=== PATIENT | male | born 1985 | race Caucasian/White ===

== ENCOUNTER 2019-11-03 12:20 | Emergency (ER) | payer SELFPAY ==
[2019-11-03 12:21] VITALS: BP 110/71; PULSE 71; RESP 18; TEMP 37.4; O2SAT 99; BMI 28.0
--- NOTE | 2019-11-03 12:31 | ED.DCSUM_ITS ---
History of Present Illness Chief Complaint: Upper Extremity Injury Informant: Patient Onset: Today Current Severity: Moderate Maximum Severity: Moderate Narrative: Patient denies a past history, he was on a ladder about 5 feet inadvertently fell use his left arm brace his fall he has pain over the left mid humeral area, he denies hitting his head he has no head neck chest or abdominal pain he is able to move his left hand without difficulty, digits are all functional, he is right-handed Past Medical History - Allergies and Home Meds Allergies/Adverse Reactions: Allergies morphine Allergy (Verified 11/03/19 12:25) Hives Primary Care Physician: Care Physician,No Primary [Primary Care Provider] - Past Medical History: None Smoking Status: Never smoker Review of Systems General: Denies: Chills, Fever, Sweats Eyes: Denies: Visual changes - bilaterally, Diplopia ENT: Denies: Rhinorrhea, Sore throat Cardiovascular: Denies: Chest pain, Palpitations Respiratory: Denies: Dyspnea, Cough, Dyspnea on exertion Gastrointestinal: Denies: Abdominal pain, Nausea, Vomiting, Diarrhea, Melena, He matochezia Genitourinary: Denies: Dysuria, Hematuria, Frequency Musculoskeletal: Reports: Extremity Pain. Denies: Back pain Skin: Denies: Rash, Wounds Neurological: Denies: Headache, Weakness, Numbness Physical Exam Vital Signs/Narrative: Vital Signs Temp Pulse Resp BP Pulse Ox 11/03/19 12:21 99.3 F H 71 18 110/71 99 General: Well nourished, Well developed, No Acute Distress Head: Normocephalic, Atraumatic Eyes: Perrl, EOMI ENT: Moist mucous membranes, No rhinorrhea Neck: Supple, Nontender Cardiovascular: Regular rate, Regular rhythm, No murmurs Respiratory: No distress, CTA bilaterally, Chest nontender Abdomen: Soft, Nontender, Nondistended, Normal bowel sounds Back: Nontender, Normal Inspection Extremities: No edema, - - He has some pain and discomfort some swelling over the left mid humeral area, he has some very mild pain over the more proximal humerus and shoulder but no deformity, he has no specific pain over the elbow forearm wrist hand suggesting the pain radiates from the mid humerus down his hand function thumb function normal pulses are symmetric cap refill normal, the other extremities are all unremarkable he is awake alert he has no head neck chest or abdominal pain no back pain Skin: Normal color, No rash Neurological: Alert, Oriented x3, Cranial nerves II-XII grossly intact, Normal Strength, Normal Sensation Psychological: Normal affect, Normal Mood Diagnostic/Tx/Re-eval - Medical Decision Making Even all of the above x-rays pain management Patient's x-ray left humerus shows midshaft fracture with some angulation, forearm x-ray per radiology also negative for all, discussed the case with Dr. Ko on-call for orthopedics reviewed the films the patient will be placed in a long posterior arm splint elbow in position of function Dr. Ko asked that the sling part of that be attached to the wrist, the patient was medicated once he had good pain relief we applied the long splint as above without difficulty, I watched him for additional hour he indicated the splint felt very good it was snug it was not tight he had no numbness weakness paresthesias to his hand neurovascular function intact he wanted to be discharged home, he will follow-up with the orthopedic office tomorrow or the next day Percocet for pain he will wear the sling will be off work and return for change in symptoms Home stable Final impression midshaft left humerus fracture after fall, long fabricated splint placed by ED physician ED Disposition - Plan for ED Patient: Diagnosis: Left humeral fracture Instructions: ED Fracture Upper Extremity Prescriptions: Hydrocodone/Acetaminophen [[place] 5-325 Tablet] 1 ea PO 4X/DAY PRN #[id number] tab PRN Reason: Pain Or Fever Prescription Printed Referrals: Care Physician,No Primary [Primary Care Provider] - Srini Ko MD [STAFF PHYSICIAN] -
--- NOTE | 2019-11-03 12:50 | RAD_ITS ---
STUDY: X-RAY - LEFT HUMERUS REASON FOR EXAM: Male, 33 years old. FALL OFF LADDER, APPROXIMATELY 5 FT. OBVIOUS DEFORMITY TO LEFT UPPER ARM TECHNIQUE: 3 view(s) of the humerus. COMPARISON: None. FINDINGS: Oblique fracture through the midshaft of the humerus with posterior angulation. Soft tissue swelling. RAD/Humerus min 2 Views IMPRESSION: Oblique fracture through the midshaft of the humerus with posterior angulation. Soft tissue swelling. Electronically Signed: Thom Quinn, at 13:23 EDT , Service support ,
--- NOTE | 2019-11-03 12:50 | RAD_ITS ---
STUDY: X-RAY - LEFT RADIUS AND ULNA REASON FOR EXAM: Male, 33 years old. FALL OFF LADDER, APPROXIMATELY 5 FT. OBVIOUS DEFORMITY TO LEFT UPPER ARM TECHNIQUE: 2 view(s) of the forearm. COMPARISON: None. FINDINGS: There is no demonstrated soft tissue swelling. Normal visualized radius. Normal visualized ulna. RAD/Forearm 2 Views IMPRESSION: Normal x-ray examination of the radius and ulna. Electronically Signed: Thom Quinn, at 13:26 EDT , Service support ,
[2019-11-03] MEDS: fentaNYL 100 MCG/2 ML Ampul 50 MCG IV (13:29)
[2019-11-03 15:54] VITALS: BP 111/64; PULSE 64; RESP 18; O2SAT 99
== END 2019-11-03 15:54 | disposition home or self-care (01) ==
LOC: ED 13:23
PROVIDERS: Emergency Provider Emergency Medicine
DX: S42.332A Displaced oblique fracture of shaft of humerus, left arm, initial encounter for closed fracture (principal); W11.XXXA Fall on and from ladder, initial encounter; Y93.9 Activity, unspecified; Y92.9 Unspecified place or not applicable
CPT/HCPCS: 29105; 73060; 73090; 96374; 99284